=== PATIENT | male | born 1955 | race Caucasian/White ===

== ENCOUNTER 2021-06-24 00:12 | Inpatient (IN) | payer MEDICARE ==
[2021-06-24] MEDS ORDERED: Ketamine 50 MG/ML (10ML VIAL) ONE (00:14)
[2021-06-24] MEDS ORDERED: Xylocaine 1% w/ Epi 1:100K 10 ML VIAL ONE (00:15)
[2021-06-24] MEDS ORDERED: methylPREDNISolone Sod Succ/PF 125 MG/2 ML VIAL ONE (00:56)
[2021-06-24] MEDS ORDERED: Propofol 1,000 MG/100 ML VIAL IV ONE (01:10)
[2021-06-24] MEDS ORDERED: Ondansetron PF 4 MG/2 ML Vial IVP PRN (01:17)
[2021-06-24] MEDS ORDERED: Dextrose 5% in Water 1,000 ML IV PRN (01:17)
[2021-06-24] MEDS ORDERED: hydrALAZINE 20 MG/ML VIAL SLOW IVP PRN (01:17)
[2021-06-24] MEDS ORDERED: Dextrose 50% Abboject 50 ML SYRINGE SLOW IVP PRN (01:17)
[2021-06-24] MEDS ORDERED: Insulin Regular 300 UNITS/3 ML VIAL SC PRN (01:17)
[2021-06-24 01:18] LABS: Hemoglobin 15.1 g/dL (14.0-18.0); Mean Corpuscular HGB CONC 32.5 g/dL (32.0-36.0); Mean Corpuscular Hemoglobin 30.8 pg (27.0-31.0); Mean Corpuscular Volume 94.8 fL (78.0-98.0); Mean Platelet Volume 7.8 fL (7.4-10.4); Platelet Count 299 thou/uL (130-400); RBC Distribution Width 15.9 % (11.5-14.5); Red Blood Cell (RBC) Count 4.89 mill/uL (4.70-6.10); White Blood Cell (WBC) Count 20.9 thou/uL (4.8-10.8)
[2021-06-24 01:20] LABS: ALT (SGPT) 19 U/L (8-55); AST (SGOT) 17 U/L (5-34); Albumin 4.4 g/dL (3.4-4.8); Alkaline Phosphatase 80 U/L (40-110); Anion Gap 20 mmol/L (10-20); BUN (Urea Nitrogen) 16 mg/dL (8.4-25.7); Bilirubin, Total 0.9 mg/dL (0.2-1.2); Calc. Creatinine Clearance 0 mL/min (70-130); Calcium 9.4 mg/dL (7.8-10.44); Carbon Dioxide 21 mmol/L (23-31); Chloride 102 mmol/L (98-107); Globulin 3.1 g/dL (2.4-3.5); Glucose 149 mg/dL (80-115); Potassium 5.5 mmol/L (3.5-5.1); Protein, Total 7.5 g/dL (5.8-8.1); Sodium 137 mmol/L (136-145)
[2021-06-24 01:24] LABS: Band 10 % (5-11); Lymphocytes 8 % (21-51); MDiff Complete? YES; Monocytes 4 % (0-10); Neutrophil 78 % (42-75)
[2021-06-24 01:30] LABS: INR-International Normal Ratio 0.9; PTT 28.8 sec (22.9-36.1); Prothrombin Time 12.6 sec (12.0-14.7)
[2021-06-24 02:01] LABS: Actual Bicarbonate (HCO3a) 25.3 mEq/L (22-28); Analyzer IN Cardio ER; Base Excess (BEa) -3.5 mEq/L (-2.0 to +3.0); Calcium, Ionized (arterial) 1.19 mmol/L (1.12-1.30); Carboxyhemoglobin (COHb) 3.4 gm% (0.0-3.0); Hemoglobin (Hb) 15.3 g/dL (14.0-18.0); O2 Tension (PaO2), arterial 67.4 mmHg (> 80.0); Potassium - ABG Lab 4.98 mmol/L (3.70-5.30)
[2021-06-24 02:12] LABS: CO2 Tension 61.4 mmHg (35.0-45.0); Puncture Site RRA; pH, Arterial 7.23 (7.35-7.45)
[2021-06-24 04:50] LABS: SARS-CoV-2 NAA Rapid Test Not Detected (NotDetected)
[2021-06-24 05:44] VITALS: BMI 24.7
[2021-06-24] MEDS ORDERED: Morphine 4 MG/ML VIAL SLOW IVP PRN (05:56)
[2021-06-24] MEDS ORDERED: Ventilator Sedation Protocol 1 EACH FS SCH (06:00)
[2021-06-24] MEDS ORDERED: Propofol 1,000 MG/100 ML VIAL IV PRN (06:00)
[2021-06-24] MEDS ORDERED: DISCONTINUE PREVIOUS NARCOTIC PAIN MEDICATIONS AND BENZODIAZEPINES FS SCH (06:00)
[2021-06-24] MEDS ORDERED: Fentanyl BOLUS 250 ML IVPB PRN (06:00)
[2021-06-24] MEDS ORDERED: Lorazepam 2 MG/ML VIAL SLOW IVP PRN (06:00)
[2021-06-24] MEDS ORDERED: Propofol BOLUS 1,000 MG/100 ML VIAL IV PRN (06:00)
[2021-06-24] MEDS: Sodium Chloride 0.9% 1,000 ML IV SCH ×4 (07:12→20:54)
[2021-06-24] MEDS: Acetaminophen 500 MG TAB PO SCH ×4 (07:50→18:07)
[2021-06-24] MEDS: Oxazepam 10 MG CAP PO SCH ×3 (07:57→21:01)
[2021-06-24] MEDS: methylPREDNISolone Sod Succ 40 MG VIAL IVP SCH ×3 (07:57→17:04)
[2021-06-24] MEDS: Multivitamin W/ Minerals 1 TAB PO SCH (08:20)
[2021-06-24] MEDS: Polyethylene Glycol 3350 17 GM Packet PO SCH (08:20)
[2021-06-24] MEDS: Gabapentin 300 MG CAP PO SCH ×3 (08:20→20:51)
[2021-06-24] MEDS: Senokot S 8.6-50 MG TAB PO SCH ×2 (08:20→20:51)
[2021-06-24] MEDS: Thiamine 100 MG TAB PO SCH (08:20)
[2021-06-24] MEDS: Famotidine/PF 20 mg/2ml Vial SLOW IVP SCH ×2 (08:20→20:51)
[2021-06-24] MEDS: Folic Acid 1 MG TAB PO SCH (08:20)
[2021-06-24] MEDS ORDERED: Sodium Chloride 0.9% 1,000 ML IV SCH (08:45)
[2021-06-24] MEDS: fentaNYL Citrate-0.9 % NaCl/PF 100 ML IV SCH (10:47)
[2021-06-24] MEDS: Apixaban 5 MG TAB PO SCH (20:51)
[2021-06-25] MEDS: Acetaminophen 500 MG TAB PO SCH ×4 (01:10→20:05)
[2021-06-25] MEDS: methylPREDNISolone Sod Succ 40 MG VIAL IVP SCH ×4 (01:10→18:21)
[2021-06-25 04:15] LABS: #Lymphocytes 0.5 thou/uL (1.20-3.40); #Monocytes 1.1 thou/uL (0.11-0.59); #Neutrophils 11.6 thou/uL (1.40-6.50); %Eosinophils 0.1 % (0.0-10.0); %Lymphocytes 3.5 % (21.0-51.0); %Monocytes 8.2 % (0.0-10.0); %Neutrophils 88.3 % (42.0-75.0); Hemoglobin 11.6 g/dL (14.0-18.0); Mean Corpuscular HGB CONC 31.9 g/dL (32.0-36.0); Mean Corpuscular Hemoglobin 30.7 pg (27.0-31.0); Mean Corpuscular Volume 96.5 fL (78.0-98.0); Mean Platelet Volume 7.7 fL (7.4-10.4); Platelet Count 198 thou/uL (130-400); RBC Distribution Width 15.6 % (11.5-14.5); Red Blood Cell (RBC) Count 3.78 mill/uL (4.70-6.10); White Blood Cell (WBC) Count 13.1 thou/uL (4.8-10.8)
[2021-06-25] MEDS: fentaNYL Citrate-0.9 % NaCl/PF 100 ML IV SCH (04:24)
[2021-06-25 04:50] LABS: Anion Gap 13 mmol/L (10-20); BUN (Urea Nitrogen) 12 mg/dL (8.4-25.7); Calc. Creatinine Clearance 110 mL/min (70-130); Calcium 8.6 mg/dL (7.8-10.44); Carbon Dioxide 24 mmol/L (23-31); Chloride 105 mmol/L (98-107); Glucose 145 mg/dL (80-115); Magnesium 1.9 mg/dL (1.6-2.6); Potassium 4.5 mmol/L (3.5-5.1); Sodium 137 mmol/L (136-145)
[2021-06-25] MEDS: Oxazepam 10 MG CAP PO SCH ×3 (06:15→22:33)
[2021-06-25 07:17] LABS: Actual Bicarbonate (HCO3a) 23.2 mEq/L (22-28); Base Excess (BEa) -2.6 mEq/L (-2.0 to +3.0); CO2 Tension 44.1 mmHg (35.0-45.0); Calcium, Ionized (arterial) 1.18 mmol/L (1.12-1.30); Carboxyhemoglobin (COHb) 1.3 gm% (0.0-3.0); Hemoglobin (Hb) 13.6 g/dL (14.0-18.0); O2 Tension (PaO2), arterial 81.7 mmHg (> 80.0); Potassium - ABG Lab 4.44 mmol/L (3.70-5.30); pH, Arterial 7.34 (7.35-7.45)
[2021-06-25 07:43] LABS: Puncture Site RRA
[2021-06-25 07:45] LABS: ALV-art Gradient 148.375 mmHg (0-20)
[2021-06-25] MEDS ORDERED: Rib Fracture Protocol PO SCH (09:00)
[2021-06-25] MEDS: Multivitamin W/ Minerals 1 TAB PO SCH (09:04)
[2021-06-25] MEDS: Famotidine/PF 20 mg/2ml Vial SLOW IVP SCH (09:04)
[2021-06-25] MEDS: Sodium Chloride 0.9% 1,000 ML IV SCH (09:04)
[2021-06-25] MEDS: Folic Acid 1 MG TAB PO SCH (09:05)
[2021-06-25] MEDS: Thiamine 100 MG TAB PO SCH (09:05)
[2021-06-25] MEDS: Apixaban 5 MG TAB PO SCH ×2 (09:06→20:05)
[2021-06-25] MEDS: Gabapentin 300 MG CAP PO SCH ×3 (09:07→20:05)
[2021-06-25] MEDS: Polyethylene Glycol 3350 17 GM Packet PO SCH (09:08)
[2021-06-25] MEDS: Senokot S 8.6-50 MG TAB PO SCH ×2 (09:08→20:05)
[2021-06-25] MEDS ORDERED: Ketorolac Tromethamine 30 MG/ML VIAL IVP SCH (10:00)
[2021-06-25] MEDS ORDERED: Cyclobenzaprine 10 MG TAB PO PRN (10:45)
[2021-06-25] MEDS: traMADol HCl 50 MG TAB PO SCH ×2 (11:29→18:21)
[2021-06-25] MEDS ORDERED: Acetaminophen 500 MG TAB PO SCH (12:00)
[2021-06-25] MEDS: cloNIDine 0.1 MG TAB PO SCH ×2 (16:22→23:23)
[2021-06-25] MEDS: Ibuprofen 200 MG TAB PO SCH (18:22)
[2021-06-25] MEDS: Famotidine 20 MG TAB PO SCH (20:06)
[2021-06-25] MEDS: Tamsulosin HCl 0.4 MG CAP PO SCH (20:07)
[2021-06-26] MEDS: traMADol HCl 50 MG TAB PO SCH ×5 (00:15→23:20)
[2021-06-26] MEDS: methylPREDNISolone Sod Succ 40 MG VIAL IVP SCH ×5 (00:16→23:21)
[2021-06-26] MEDS: Acetaminophen 500 MG TAB PO SCH ×4 (01:10→21:51)
[2021-06-26] MEDS: Ibuprofen 200 MG TAB PO SCH ×3 (02:50→18:21)
[2021-06-26 03:40] LABS: #Lymphocytes 0.4 thou/uL (1.20-3.40); #Monocytes 0.8 thou/uL (0.11-0.59); #Neutrophils 10.1 thou/uL (1.40-6.50); %Eosinophils 0.1 % (0.0-10.0); %Lymphocytes 3.1 % (21.0-51.0); %Monocytes 6.9 % (0.0-10.0); %Neutrophils 89.8 % (42.0-75.0); Hemoglobin 11.5 g/dL (14.0-18.0); Mean Corpuscular HGB CONC 31.6 g/dL (32.0-36.0); Mean Corpuscular Hemoglobin 30.6 pg (27.0-31.0); Mean Corpuscular Volume 96.7 fL (78.0-98.0); Mean Platelet Volume 7.8 fL (7.4-10.4); Platelet Count 195 thou/uL (130-400); RBC Distribution Width 15.6 % (11.5-14.5); Red Blood Cell (RBC) Count 3.77 mill/uL (4.70-6.10); White Blood Cell (WBC) Count 11.3 thou/uL (4.8-10.8)
[2021-06-26 04:00] LABS: Anion Gap 12 mmol/L (10-20); BUN (Urea Nitrogen) 16 mg/dL (8.4-25.7); Calc. Creatinine Clearance 108 mL/min (70-130); Calcium 8.7 mg/dL (7.8-10.44); Carbon Dioxide 25 mmol/L (23-31); Chloride 105 mmol/L (98-107); Glucose 169 mg/dL (80-115); Potassium 4.7 mmol/L (3.5-5.1); Sodium 137 mmol/L (136-145)
[2021-06-26 04:05] LABS: Phosphorus 1.9 mg/dL (2.3-4.7)
[2021-06-26] MEDS: cloNIDine 0.1 MG TAB PO SCH ×4 (04:38→21:52)
[2021-06-26] MEDS: Oxazepam 10 MG CAP PO SCH ×3 (05:19→21:52)
[2021-06-26] MEDS ORDERED: Sodium Phosphate 30 MMOL in Sodium Chloride 0.9% 250 ML 250 ML IVPB SCH (06:30)
[2021-06-26] MEDS: Famotidine 20 MG TAB PO SCH ×2 (08:44→21:52)
[2021-06-26] MEDS: Thiamine 100 MG TAB PO SCH (08:44)
[2021-06-26] MEDS: Folic Acid 1 MG TAB PO SCH (08:44)
[2021-06-26] MEDS: Gabapentin 300 MG CAP PO SCH ×3 (08:44→21:53)
[2021-06-26] MEDS: Multivitamin W/ Minerals 1 TAB PO SCH (08:44)
[2021-06-26] MEDS: Apixaban 5 MG TAB PO SCH ×2 (08:44→21:53)
[2021-06-26] MEDS: Senokot S 8.6-50 MG TAB PO SCH ×2 (08:45→21:52)
[2021-06-26] MEDS: Polyethylene Glycol 3350 17 GM Packet PO SCH (08:51)
[2021-06-26] MEDS ORDERED: traMADol HCl 50 MG TAB ONE (11:55)
[2021-06-26] MEDS ORDERED: cloNIDine 0.1 MG TAB ONE (11:56)
[2021-06-26] MEDS ORDERED: Hydrocortisone Sod Succ/PF 100 mg/2 ml Vial ONE (12:16)
[2021-06-26] MEDS ORDERED: Acetaminophen 500 MG TAB ONE (13:34)
[2021-06-26] MEDS: Tamsulosin HCl 0.4 MG CAP PO SCH (21:51)
[2021-06-27] MEDS: Ibuprofen 200 MG TAB PO SCH ×3 (01:52→18:05)
[2021-06-27] MEDS: Acetaminophen 500 MG TAB PO SCH ×4 (01:52→21:21)
[2021-06-27] MEDS: cloNIDine 0.1 MG TAB PO SCH ×3 (05:04→18:41)
[2021-06-27] MEDS: Oxazepam 10 MG CAP PO SCH ×3 (05:04→23:01)
[2021-06-27] MEDS: traMADol HCl 50 MG TAB PO SCH ×4 (05:04→23:01)
[2021-06-27] MEDS: methylPREDNISolone Sod Succ 40 MG VIAL IVP SCH ×3 (05:05→18:04)
[2021-06-27] MEDS: Apixaban 5 MG TAB PO SCH ×2 (07:43→21:21)
[2021-06-27] MEDS: Multivitamin W/ Minerals 1 TAB PO SCH (07:43)
[2021-06-27] MEDS: Gabapentin 300 MG CAP PO SCH ×3 (07:43→21:22)
[2021-06-27] MEDS: Thiamine 100 MG TAB PO SCH (07:43)
[2021-06-27] MEDS: Famotidine 20 MG TAB PO SCH ×2 (07:43→21:21)
[2021-06-27] MEDS: Senokot S 8.6-50 MG TAB PO SCH ×2 (07:46→21:22)
[2021-06-27] MEDS: Polyethylene Glycol 3350 17 GM Packet PO SCH (07:47)
[2021-06-27] MEDS: Folic Acid 1 MG TAB PO SCH (11:19)
[2021-06-27] MEDS: Mometasone 200 MCG/Formoterol 5 MCG 120 PUFF INHALER INH SCH (18:55)
[2021-06-27] MEDS ORDERED: Non-Formulary Item 1 EACH (Albuterol Sulfate [Albuterol Sulfate Hfa] 8.5 GM Hfa.Aer.Ad) IH SCH (19:00)
[2021-06-27] MEDS: Tamsulosin HCl 0.4 MG CAP PO SCH (21:21)
[2021-06-28] MEDS: Ibuprofen 200 MG TAB PO SCH ×2 (02:21→10:56)
[2021-06-28] MEDS: Acetaminophen 500 MG TAB PO SCH ×3 (02:21→14:32)
[2021-06-28] MEDS: traMADol HCl 50 MG TAB PO SCH ×2 (05:40→12:14)
[2021-06-28] MEDS: Oxazepam 10 MG CAP PO SCH ×2 (05:40→14:31)
[2021-06-28] MEDS ORDERED: Furosemide 20 MG/2 ML VIAL SLOW IVP SCH (07:15)
[2021-06-28] MEDS: Mometasone 200 MCG/Formoterol 5 MCG 120 PUFF INHALER INH SCH (07:53)
[2021-06-28] MEDS ORDERED: predniSONE 20 MG TAB PO SCH (08:00)
[2021-06-28] MEDS: Multivitamin W/ Minerals 1 TAB PO SCH (08:44)
[2021-06-28] MEDS: Apixaban 5 MG TAB PO SCH (08:44)
[2021-06-28] MEDS: Gabapentin 300 MG CAP PO SCH ×2 (08:45→14:32)
[2021-06-28] MEDS: Thiamine 100 MG TAB PO SCH (08:45)
[2021-06-28] MEDS: Folic Acid 1 MG TAB PO SCH (08:45)
[2021-06-28] MEDS: Polyethylene Glycol 3350 17 GM Packet PO SCH (08:46)
[2021-06-28] MEDS: Senokot S 8.6-50 MG TAB PO SCH (08:46)
[2021-06-28] MEDS ORDERED: Furosemide 20 MG TAB PO SCH (09:00)
[2021-06-28 12:45] VITALS: BP 130/76; TEMP 98
== END 2021-06-28 15:45 | disposition home or self-care (01) | DRG 208 ==
LOC: ERS 00:12 → CCU 01:17 → PACU-TCU 06-26 09:27 → SJJU 06-26 15:11
PROVIDERS: ADMIT Surgery; ATTEND Surgery
PROC: 5A1945Z Respiratory Ventilation, 24-96 Consecutive Hours (ICD-10-PCS; principal; 2021-06-24)
PROC: 0W9B30Z Drainage of Left Pleural Cavity with Drainage Device, Percutaneous Approach (ICD-10-PCS; 2021-06-24)
PROC: 0BH17EZ Insertion of Endotracheal Airway into Trachea, Via Natural or Artificial Opening (ICD-10-PCS; 2021-06-24)
PROC: 0D9670Z Drainage of Stomach with Drainage Device, Via Natural or Artificial Opening (ICD-10-PCS; 2021-06-24)
DX: S27.0XXA Traumatic pneumothorax, initial encounter (principal); J96.90 Respiratory failure, unspecified, unspecified whether with hypoxia or hypercapnia; S22.43XA Multiple fractures of ribs, bilateral, initial encounter for closed fracture; I82.411 Acute embolism and thrombosis of right femoral vein; Z20.822 Contact with and (suspected) exposure to COVID-19; T79.7XXA Traumatic subcutaneous emphysema, initial encounter; J43.9 Emphysema, unspecified; F41.9 Anxiety disorder, unspecified; F32.A Depression, unspecified; F10.10 Alcohol abuse, uncomplicated; W18.30XA Fall on same level, unspecified, initial encounter; F17.210 Nicotine dependence, cigarettes, uncomplicated; R33.9 Retention of urine, unspecified; Z78.1 Physical restraint status; Z98.890 Other specified postprocedural states; Z86.718 Personal history of other venous thrombosis and embolism; Z79.82 Long term (current) use of aspirin; Z79.899 Other long term (current) drug therapy; T45.516A Underdosing of anticoagulants, initial encounter; Z91.14 Patient's other noncompliance with medication regimen; I95.9 Hypotension, unspecified
CPT/HCPCS: 36415; 36416; 36600; 71045; 80048; 80053; 82805; 83735; 83880; 84100; 84484; 85025; 85610; 85730; 93970; 94002; 94003; 94640; 94760; G0390; J1720; J1885; J2060; J2704; J2920; J2930; J7050; J7512; J7620; S0028; U0002

== ENCOUNTER 2021-07-17 12:12 | Outpatient (CLI) | payer MEDICARE | END 2021-07-17 12:13 | disposition home or self-care (01) | LOC: BICRAD 12:12 | PROVIDERS: ATTEND Surgery | DX: J18.9 Pneumonia, unspecified organism (principal); R91.8 Other nonspecific abnormal finding of lung field; J44.9 Chronic obstructive pulmonary disease, unspecified | CPT/HCPCS: 36415; 71046; 80048 ==

== ENCOUNTER 2021-08-01 11:29 | Outpatient (CLI) | payer MEDICARE ==
[~2021-08-01 11:29] MED LIST: Iopamidol 370 76% 100 ML VIAL ONE
== END 2021-08-01 11:30 | disposition home or self-care (01) ==
LOC: CT 11:29
PROVIDERS: ATTEND Surgery
DX: J44.9 Chronic obstructive pulmonary disease, unspecified (principal); I08.1 Rheumatic disorders of both mitral and tricuspid valves
CPT/HCPCS: 75635; 93306; 93880; Q9967

== ENCOUNTER 2022-03-11 09:40 | Inpatient (IN) | payer MEDICARE ==
[2022-03-11] MEDS ORDERED: TETANUS, DIPHTHERIA TOX,ADULT (TDVAX) 0.5 ML VIAL IM ONE (13:13)
[2022-03-11] MEDS ORDERED: Ondansetron PF 4 MG/2 ML Vial IVP PRN (13:13)
[2022-03-11] MEDS ORDERED: hydrALAZINE 20 MG/ML VIAL SLOW IVP PRN ×2 (13:13→13:16)
[2022-03-11] MEDS ORDERED: Rib Fracture Protocol IV SCH (13:15)
[2022-03-11] MEDS ORDERED: Sodium Chloride 0.9% 1,000 ML IV SCH ×2 (13:15→17:55)
[2022-03-11] MEDS ORDERED: Cyclobenzaprine 10 MG TAB PO PRN (13:16)
[2022-03-11 15:52] LABS: #Eosinphils 0.2 thou/uL (0.0-0.7); #Lymphocytes 0.7 thou/uL (1.20-3.40); #Monocytes 0.8 thou/uL (0.11-0.59); #Neutrophils 6.8 thou/uL (1.40-6.50); %Basophils 0.4 % (0.0-1.0); %Eosinophils 1.8 % (0.0-10.0); %Lymphocytes 8.1 % (21.0-51.0); %Monocytes 9.8 % (0.0-10.0); Hemoglobin 13.1 g/dL (14.0-18.0); Mean Corpuscular Hemoglobin 32.8 pg (27.0-31.0); Mean Platelet Volume 8.2 fL (7.4-10.4); Platelet Count 146 thou/uL (130-400); RBC Distribution Width 14.5 % (11.5-14.5); White Blood Cell (WBC) Count 8.5 thou/uL (4.8-10.8)
[2022-03-11 16:02] LABS: INR-International Normal Ratio 0.9; Prothrombin Time 11.9 sec (12.0-14.7)
[2022-03-11 16:03] LABS: PTT 30.9 sec (22.9-36.1)
[2022-03-11 16:13] LABS: ALT (SGPT) 21 U/L (8-55); AST (SGOT) 25 U/L (5-34); Albumin 3.5 g/dL (3.4-4.8); Alkaline Phosphatase 118 U/L (40-110); Anion Gap 15 mmol/L (10-20); BUN (Urea Nitrogen) 9 mg/dL (8.4-25.7); Bilirubin, Total 0.5 mg/dL (0.2-1.2); Calc. Creatinine Clearance 0 mL/min (70-130); Calcium 9.4 mg/dL (7.8-10.44); Carbon Dioxide 34 mmol/L (23-31); Chloride 87 mmol/L (98-107); Estimated GFR 109; Globulin 3.2 g/dL (2.4-3.5); Glucose 101 mg/dL (80-115); Magnesium 1.8 mg/dL (1.6-2.6); Phosphorus 2.6 mg/dL (2.3-4.7); Potassium 4.5 mmol/L (3.5-5.1); Protein, Total 6.7 g/dL (5.8-8.1); Sodium 131 mmol/L (136-145)
[2022-03-11] MEDS: Morphine 2 MG/ML VIAL SLOW IVP PRN ×2 (16:15→19:59)
[2022-03-11] MEDS: Oxazepam 10 MG CAP PO SCH ×2 (18:32→22:04)
[2022-03-11] MEDS: traMADol HCl 50 MG TAB PO SCH (18:33)
[2022-03-11] MEDS: Acetaminophen 325 MG TAB PO SCH (18:34)
[2022-03-11] MEDS: Nicotine 14 MG PATCH TOP SCH (18:44)
[2022-03-11] MEDS: Mometasone 200 MCG/Formoterol 5 MCG 120 PUFF INHALER INH SCH (19:23)
[2022-03-11] MEDS: Famotidine 20 MG TAB PO SCH (20:02)
[2022-03-11] MEDS: Senokot S 8.6-50 MG TAB PO SCH (20:20)
[2022-03-11 20:24] VITALS: BMI 23.0
[2022-03-11] MEDS ORDERED: Senokot S 8.6-50 MG TAB PO SCH (21:00)
[2022-03-12] MEDS: traMADol HCl 50 MG TAB PO SCH ×5 (00:05→23:41)
[2022-03-12] MEDS: Acetaminophen 325 MG TAB PO SCH ×5 (00:09→23:40)
[2022-03-12 00:53] LABS: Bacteria/HPF 4+ HPF (None Seen); Bilirubin Negative (Negative); Blood, Urine Negative (Negative); Clarity Turbid (Clear); Glucose, Urine (Dipstick) Normal (Negative); Ketone, Urine Trace mg/dL (Negative); Leukocyte 250 Leu/uL (Negative); Nitrite Negative (Negative); Protein, Urine (Dipstick) Negative (Neg-Trace); RBC/HPF 0-3 HPF (0-3); Specific Gravity, Urine 1.011 (1.002-1.036); Squamous Epithelial 0-3 HPF (0-3); Urobilinogen Normal mg/dL (Less than 2)
[2022-03-12 00:55] LABS: Urine Culture Reflex Yes Yes
[2022-03-12 01:08] LABS: Amphetamine Not Detected (NotDetected); Barbiturates Screen Not Detected (NotDetected); Benzodiazepine Screen Detected (NotDetected); Cocaine Metabolite Screen Not Detected (NotDetected); Methadone Not Detected (NotDetected); Methamphetamine Not Detected (NotDetected); Opiate Screen Detected (NotDetected); Oxycodone Screen Not Detected (NotDetected); Phencyclidine (PCP) Not Detected (NotDetected); THC/Cannabinoid Screen Not Detected (NotDetected); Tricyclic Screen Not Detected (NotDetected)
[2022-03-12] MEDS: Oxazepam 10 MG CAP PO SCH ×3 (05:01→21:23)
[2022-03-12] MEDS: Morphine 2 MG/ML VIAL SLOW IVP PRN ×3 (05:05→11:49)
[2022-03-12 05:59] LABS: #Eosinphils 0.2 thou/uL (0.0-0.7); #Lymphocytes 0.7 thou/uL (1.20-3.40); %Basophils 0.2 % (0.0-1.0); %Eosinophils 2.4 % (0.0-10.0); %Lymphocytes 7.4 % (21.0-51.0); %Monocytes 11.6 % (0.0-10.0); %Neutrophils 78.5 % (42.0-75.0); Hemoglobin 12.3 g/dL (14.0-18.0); Mean Corpuscular HGB CONC 31.3 g/dL (32.0-36.0); Mean Corpuscular Hemoglobin 33.1 pg (27.0-31.0); Mean Platelet Volume 8.4 fL (7.4-10.4); Platelet Count 126 thou/uL (130-400); RBC Distribution Width 14.4 % (11.5-14.5); Red Blood Cell (RBC) Count 3.72 mill/uL (4.70-6.10); White Blood Cell (WBC) Count 8.9 thou/uL (4.8-10.8)
[2022-03-12 06:22] LABS: SARS-CoV-2 NAA Rapid Test Not Detected (NotDetected)
[2022-03-12 06:28] LABS: ALT (SGPT) 21 U/L (8-55); AST (SGOT) 29 U/L (5-34); Albumin 3.3 g/dL (3.4-4.8); Alkaline Phosphatase 109 U/L (40-110); Anion Gap 13 mmol/L (10-20); BUN (Urea Nitrogen) 7 mg/dL (8.4-25.7); Bilirubin, Total 0.4 mg/dL (0.2-1.2); Calc. Creatinine Clearance 155 mL/min (70-130); Calcium 9.2 mg/dL (7.8-10.44); Carbon Dioxide 34 mmol/L (23-31); Chloride 88 mmol/L (98-107); Estimated GFR 113; Glucose 119 mg/dL (80-115); Magnesium 1.7 mg/dL (1.6-2.6); Phosphorus 2.8 mg/dL (2.3-4.7); Potassium 4.3 mmol/L (3.5-5.1); Protein, Total 6.3 g/dL (5.8-8.1); Sodium 131 mmol/L (136-145)
[2022-03-12] MEDS ORDERED: CEFAZOLIN 2 GM in Sodium Chloride 0.9% 100 ML IVPB SCH (07:15)
[2022-03-12] MEDS: Mometasone 200 MCG/Formoterol 5 MCG 120 PUFF INHALER INH SCH ×2 (07:40→18:28)
[2022-03-12] MEDS ORDERED: PHOS-NAK 1 PKT PACK PO SCH (08:15)
[2022-03-12] MEDS: Folic Acid 1 MG TAB PO SCH (08:43)
[2022-03-12] MEDS: Senokot S 8.6-50 MG TAB PO SCH ×2 (08:43→19:37)
[2022-03-12] MEDS: Famotidine 20 MG TAB PO SCH ×2 (08:43→19:36)
[2022-03-12] MEDS: Multivitamin W/ Minerals 1 TAB PO SCH (08:43)
[2022-03-12] MEDS: Polyethylene Glycol 3350 17 GM Packet PO SCH (08:43)
[2022-03-12] MEDS: Thiamine 100 MG TAB PO SCH (08:44)
[2022-03-12] MEDS ORDERED: Multivitamin W/ Minerals 1 TAB PO SCH (09:00)
[2022-03-12] MEDS ORDERED: Magnesium 2 GM/50 ML(in water) 2 GM in Premix Bag 1 BAG IVPB SCH (09:00)
[2022-03-12] MEDS ORDERED: Thiamine 100 MG TAB PO SCH (09:00)
[2022-03-12] MEDS ORDERED: Vancomycin 1 GM/200 ML BAG ONE (14:55)
[2022-03-12] MEDS ORDERED: Albuterol Sulfate HFA (OR ONLY) ONE ×2 (15:12→15:34)
[2022-03-12] MEDS ORDERED: fentaNYL Citrate/PF 100 MCG/2 ML SYRINGE ONE (15:12)
[2022-03-12] MEDS ORDERED: SUGAMMADEX SODIUM 200 MG/2 ML VIAL ONE (15:14)
[2022-03-12] MEDS ORDERED: CEFAZOLIN 2 GM VIAL ONE (15:23)
[2022-03-12] MEDS ORDERED: Sodium Chloride 0.9% 100 ML ONE (15:23)
[2022-03-12] MEDS ORDERED: Ketamine 50 MG/ML (10ML VIAL) ONE (15:25)
[2022-03-12] MEDS ORDERED: Ciprofloxacin 500 MG TAB PO SCH (15:30)
[2022-03-12] MEDS ORDERED: Phenylephrine 10 MG/ML VIAL ONE (15:34)
[2022-03-12] MEDS ORDERED: Dexamethasone 20 MG/5 ML VIAL ONE (15:34)
[2022-03-12] MEDS ORDERED: Lidocaine 1% MPF 2 ML VIAL ONE (15:34)
[2022-03-12] MEDS ORDERED: Ondansetron PF 4 MG/2 ML Vial ONE (15:34)
[2022-03-12] MEDS ORDERED: Rocuronium Bromide 10 MG/ML (10ML VIAL) ONE (15:34)
[2022-03-12] MEDS ORDERED: PROPOFOL 200 MG/20 ML VIAL ONE (15:34)
[2022-03-12] MEDS ORDERED: Fentanyl 100 MCG/2 ML VIAL ONE (18:07)
[2022-03-12] MEDS: Nicotine 14 MG PATCH TOP SCH (19:35)
[2022-03-12] MEDS: Ciprofloxacin 500 MG TAB PO SCH (19:37)
[2022-03-12] MEDS: CEFAZOLIN 2 GM in Sodium Chloride 0.9% 100 ML IVPB SCH (21:23)
[2022-03-13] MEDS: Morphine 2 MG/ML VIAL SLOW IVP PRN (03:00)
[2022-03-13] MEDS: Ibuprofen 200 MG TAB PO PRN ×2 (03:01→20:47)
[2022-03-13] MEDS: Oxazepam 10 MG CAP PO SCH ×3 (06:04→20:45)
[2022-03-13] MEDS: Acetaminophen 325 MG TAB PO SCH ×4 (06:04→23:21)
[2022-03-13] MEDS: CEFAZOLIN 2 GM in Sodium Chloride 0.9% 100 ML IVPB SCH ×2 (06:05→15:25)
[2022-03-13] MEDS: traMADol HCl 50 MG TAB PO SCH ×4 (06:06→23:21)
[2022-03-13] MEDS: Ciprofloxacin 500 MG TAB PO SCH (06:07)
[2022-03-13 06:20] LABS: #Eosinphils 0.1 thou/uL (0.0-0.7); #Lymphocytes 0.8 thou/uL (1.20-3.40); #Monocytes 0.9 thou/uL (0.11-0.59); #Neutrophils 7.7 thou/uL (1.40-6.50); %Basophils 0.2 % (0.0-1.0); %Lymphocytes 8.1 % (21.0-51.0); %Monocytes 9.4 % (0.0-10.0); %Neutrophils 81.3 % (42.0-75.0); Mean Corpuscular HGB CONC 32.6 g/dL (32.0-36.0); Mean Corpuscular Hemoglobin 35.3 pg (27.0-31.0); Mean Platelet Volume 8.6 fL (7.4-10.4); Platelet Count 109 thou/uL (130-400); RBC Distribution Width 14.3 % (11.5-14.5); Red Blood Cell (RBC) Count 2.83 mill/uL (4.70-6.10); White Blood Cell (WBC) Count 9.4 thou/uL (4.8-10.8)
[2022-03-13 06:49] LABS: Anion Gap 13 mmol/L (10-20); BUN (Urea Nitrogen) 8 mg/dL (8.4-25.7); Calc. Creatinine Clearance 161 mL/min (70-130); Calcium 8.1 mg/dL (7.8-10.44); Carbon Dioxide 28 mmol/L (23-31); Chloride 94 mmol/L (98-107); Estimated GFR 115; Glucose 131 mg/dL (80-115); Magnesium 1.9 mg/dL (1.6-2.6); Phosphorus 2.8 mg/dL (2.3-4.7); Potassium 4.3 mmol/L (3.5-5.1); Sodium 131 mmol/L (136-145)
[2022-03-13] MEDS: Mometasone 200 MCG/Formoterol 5 MCG 120 PUFF INHALER INH SCH ×2 (07:06→18:45)
[2022-03-13] MEDS: Folic Acid 1 MG TAB PO SCH (08:58)
[2022-03-13] MEDS: Polyethylene Glycol 3350 17 GM Packet PO SCH (08:58)
[2022-03-13] MEDS: Aspirin 81 mg Enteric Coated Tablet PO SCH ×2 (08:58→20:45)
[2022-03-13] MEDS: Senokot S 8.6-50 MG TAB PO SCH ×2 (08:59→20:46)
[2022-03-13] MEDS: Multivitamin W/ Minerals 1 TAB PO SCH (08:59)
[2022-03-13] MEDS: Famotidine 20 MG TAB PO SCH ×2 (08:59→20:45)
[2022-03-13] MEDS: Thiamine 100 MG TAB PO SCH (08:59)
[2022-03-13] MEDS: PHOS-NAK 1 PKT PACK PO SCH ×2 (09:07→09:11)
[2022-03-13] MEDS ORDERED: Piperacillin/Tazobactam 3.375 GM in Sodium Chloride 0.9% 100 ML IVPB SCH ×2 (15:00→16:00)
[2022-03-13] MEDS: Gabapentin 100 MG CAP PO SCH ×2 (15:25→20:48)
[2022-03-13] MEDS: Nicotine 14 MG PATCH TOP SCH (16:42)
[2022-03-13] MEDS: Piperacillin/Tazobactam 3.375 GM in Sodium Chloride 0.9% 100 ML IVPB SCH (20:52)
[2022-03-14] MEDS: Piperacillin/Tazobactam 3.375 GM in Sodium Chloride 0.9% 100 ML IVPB SCH ×3 (03:48→20:42)
[2022-03-14] MEDS: traMADol HCl 50 MG TAB PO PRN (04:07)
[2022-03-14] MEDS: Acetaminophen 325 MG TAB PO SCH ×4 (05:19→23:06)
[2022-03-14] MEDS: Oxazepam 10 MG CAP PO SCH ×3 (05:20→20:51)
[2022-03-14] MEDS: traMADol HCl 50 MG TAB PO SCH ×4 (05:20→23:08)
[2022-03-14 06:05] LABS: #Eosinphils 0.5 thou/uL (0.0-0.7); #Lymphocytes 1.1 thou/uL (1.20-3.40); #Monocytes 1.1 thou/uL (0.11-0.59); #Neutrophils 7.8 thou/uL (1.40-6.50); %Basophils 0.2 % (0.0-1.0); %Eosinophils 4.8 % (0.0-10.0); %Lymphocytes 10.1 % (21.0-51.0); %Monocytes 10.8 % (0.0-10.0); %Neutrophils 74.1 % (42.0-75.0); Hemoglobin 7.4 g/dL (14.0-18.0); Mean Corpuscular HGB CONC 30.9 g/dL (32.0-36.0); Mean Corpuscular Hemoglobin 32.9 pg (27.0-31.0); Mean Platelet Volume 8.6 fL (7.4-10.4); Platelet Count 155 thou/uL (130-400); RBC Distribution Width 14.2 % (11.5-14.5); Red Blood Cell (RBC) Count 2.25 mill/uL (4.70-6.10); White Blood Cell (WBC) Count 10.6 thou/uL (4.8-10.8)
[2022-03-14 06:32] LABS: Anion Gap 10 mmol/L (10-20); BUN (Urea Nitrogen) 8 mg/dL (8.4-25.7); Calc. Creatinine Clearance 155 mL/min (70-130); Calcium 8.2 mg/dL (7.8-10.44); Carbon Dioxide 32 mmol/L (23-31); Chloride 95 mmol/L (98-107); Estimated GFR 113; Glucose 116 mg/dL (80-115); Magnesium 1.9 mg/dL (1.6-2.6); Phosphorus 3.5 mg/dL (2.3-4.7); Potassium 3.9 mmol/L (3.5-5.1); Sodium 133 mmol/L (136-145)
[2022-03-14] MEDS: Mometasone 200 MCG/Formoterol 5 MCG 120 PUFF INHALER INH SCH ×2 (07:02→18:22)
[2022-03-14] MEDS ORDERED: FLU VACC QS2022-23(6MOS UP)/PF 60 MCG/0.5 ML SYRINGE IM ONE (09:00)
[2022-03-14] MEDS: Ibuprofen 200 MG TAB PO PRN ×2 (09:22→20:48)
[2022-03-14] MEDS: Folic Acid 1 MG TAB PO SCH (09:22)
[2022-03-14] MEDS: Aspirin 81 mg Enteric Coated Tablet PO SCH ×2 (09:22→20:50)
[2022-03-14] MEDS: Senokot S 8.6-50 MG TAB PO SCH ×2 (09:22→20:51)
[2022-03-14] MEDS: Multivitamin W/ Minerals 1 TAB PO SCH (09:22)
[2022-03-14] MEDS: Famotidine 20 MG TAB PO SCH ×2 (09:22→20:50)
[2022-03-14] MEDS: Polyethylene Glycol 3350 17 GM Packet PO SCH (09:22)
[2022-03-14] MEDS: Thiamine 100 MG TAB PO SCH (09:24)
[2022-03-14] MEDS: Gabapentin 100 MG CAP PO SCH ×3 (09:24→20:46)
[2022-03-14] MEDS: Nicotine 14 MG PATCH TOP SCH (16:57)
[2022-03-15] MEDS: traMADol HCl 50 MG TAB PO PRN (03:29)
[2022-03-15] MEDS: Piperacillin/Tazobactam 3.375 GM in Sodium Chloride 0.9% 100 ML IVPB SCH ×3 (03:31→20:31)
[2022-03-15 05:30] LABS: Anion Gap 8 mmol/L (10-20); BUN (Urea Nitrogen) 7 mg/dL (8.4-25.7); Calc. Creatinine Clearance 136 mL/min (70-130); Calcium 8.3 mg/dL (7.8-10.44); Carbon Dioxide 34 mmol/L (23-31); Chloride 96 mmol/L (98-107); Estimated GFR 109; Glucose 137 mg/dL (80-115); Magnesium 2.1 mg/dL (1.6-2.6); Phosphorus 3.8 mg/dL (2.3-4.7); Potassium 4.2 mmol/L (3.5-5.1); Sodium 134 mmol/L (136-145)
[2022-03-15] MEDS: Oxazepam 10 MG CAP PO SCH ×3 (05:35→20:28)
[2022-03-15] MEDS: Acetaminophen 325 MG TAB PO SCH ×3 (05:35→17:10)
[2022-03-15] MEDS: traMADol HCl 50 MG TAB PO SCH ×4 (05:36→17:10)
[2022-03-15 05:49] LABS: Band 15 % (5-11); Eosinophils 2 % (0-10); Hemoglobin 7.4 g/dL (14.0-18.0); Lymphocytes 12 % (21-51); MDiff Complete? YES; Macrocytosis SLIGHT = 6-15 cells (100X) (0-5/hpf); Mean Corpuscular HGB CONC 30.8 g/dL (32.0-36.0); Mean Corpuscular Hemoglobin 33.1 pg (27.0-31.0); Mean Platelet Volume 7.5 fL (7.4-10.4); Metamyelocyte 1 % (0-0); Monocytes 14 % (0-10); Myelocyte 6 % (0-0); Neutrophil 50 % (42-75); Platelet Count 203 thou/uL (130-400); RBC Distribution Width 14.1 % (11.5-14.5); Red Blood Cell (RBC) Count 2.22 mill/uL (4.70-6.10); White Blood Cell (WBC) Count 8.9 thou/uL (4.8-10.8)
[2022-03-15] MEDS: Mometasone 200 MCG/Formoterol 5 MCG 120 PUFF INHALER INH SCH ×2 (07:02→19:16)
[2022-03-15] MEDS: Famotidine 20 MG TAB PO SCH ×2 (08:50→20:30)
[2022-03-15] MEDS: Gabapentin 100 MG CAP PO SCH ×3 (08:50→20:29)
[2022-03-15] MEDS: Aspirin 81 mg Enteric Coated Tablet PO SCH ×2 (08:50→20:30)
[2022-03-15] MEDS: Folic Acid 1 MG TAB PO SCH (08:50)
[2022-03-15] MEDS: Multivitamin W/ Minerals 1 TAB PO SCH (08:50)
[2022-03-15] MEDS: Thiamine 100 MG TAB PO SCH (08:50)
[2022-03-15] MEDS: Polyethylene Glycol 3350 17 GM Packet PO SCH (08:51)
[2022-03-15] MEDS: Senokot S 8.6-50 MG TAB PO SCH ×2 (08:51→20:27)
[2022-03-15] MEDS: Ibuprofen 200 MG TAB PO PRN ×2 (08:56→16:31)
[2022-03-15] MEDS: Nicotine 14 MG PATCH TOP SCH (17:11)
[2022-03-16] MEDS: traMADol HCl 50 MG TAB PO PRN ×2 (00:24→14:46)
[2022-03-16] MEDS: Acetaminophen 325 MG TAB PO SCH ×4 (00:24→17:37)
[2022-03-16] MEDS: Piperacillin/Tazobactam 3.375 GM in Sodium Chloride 0.9% 100 ML IVPB SCH ×3 (04:51→20:08)
[2022-03-16] MEDS: Oxazepam 10 MG CAP PO SCH ×3 (04:52→22:28)
[2022-03-16] MEDS: traMADol HCl 50 MG TAB PO SCH ×3 (04:53→17:36)
[2022-03-16] MEDS: Mometasone 200 MCG/Formoterol 5 MCG 120 PUFF INHALER INH SCH ×2 (08:03→19:04)
[2022-03-16] MEDS: Folic Acid 1 MG TAB PO SCH (08:17)
[2022-03-16] MEDS: Senokot S 8.6-50 MG TAB PO SCH ×2 (08:19→20:08)
[2022-03-16] MEDS: Famotidine 20 MG TAB PO SCH ×2 (08:19→20:08)
[2022-03-16] MEDS: Multivitamin W/ Minerals 1 TAB PO SCH (08:19)
[2022-03-16] MEDS: Gabapentin 100 MG CAP PO SCH ×3 (08:19→20:08)
[2022-03-16] MEDS: Thiamine 100 MG TAB PO SCH (08:19)
[2022-03-16] MEDS: Aspirin 81 mg Enteric Coated Tablet PO SCH ×2 (08:19→20:07)
[2022-03-16] MEDS: Ibuprofen 200 MG TAB PO PRN ×2 (08:20→20:22)
[2022-03-16] MEDS: Polyethylene Glycol 3350 17 GM Packet PO SCH (08:21)
[2022-03-16] MEDS: Nicotine 14 MG PATCH TOP SCH (17:37)
[2022-03-17] MEDS: traMADol HCl 50 MG TAB PO SCH ×4 (00:44→18:22)
[2022-03-17] MEDS: Acetaminophen 325 MG TAB PO SCH ×4 (00:44→18:21)
[2022-03-17] MEDS: Piperacillin/Tazobactam 3.375 GM in Sodium Chloride 0.9% 100 ML IVPB SCH ×2 (05:00→11:40)
[2022-03-17] MEDS: Oxazepam 10 MG CAP PO SCH ×2 (05:06→14:31)
[2022-03-17] MEDS: Mometasone 200 MCG/Formoterol 5 MCG 120 PUFF INHALER INH SCH ×2 (08:03→18:15)
[2022-03-17] MEDS: Gabapentin 100 MG CAP PO SCH ×2 (09:16→14:31)
[2022-03-17] MEDS: Folic Acid 1 MG TAB PO SCH (09:16)
[2022-03-17] MEDS: Aspirin 81 mg Enteric Coated Tablet PO SCH (09:16)
[2022-03-17] MEDS: Thiamine 100 MG TAB PO SCH (09:16)
[2022-03-17] MEDS: Famotidine 20 MG TAB PO SCH (09:17)
[2022-03-17] MEDS: Multivitamin W/ Minerals 1 TAB PO SCH (09:17)
[2022-03-17] MEDS: Polyethylene Glycol 3350 17 GM Packet PO SCH (09:18)
[2022-03-17] MEDS: Senokot S 8.6-50 MG TAB PO SCH (09:19)
[2022-03-17] MEDS: Ibuprofen 200 MG TAB PO PRN (12:29)
[2022-03-17] MEDS: traMADol HCl 50 MG TAB PO PRN (14:31)
[2022-03-17] MEDS: Nicotine 14 MG PATCH TOP SCH (18:22)
[2022-03-17 21:44] VITALS: BP 112/68; TEMP 98.1
== END 2022-03-17 20:25 | disposition swing bed (61) | DRG 522 ==
LOC: SURG A 11:05 → SURG B 15:25
PROVIDERS: ADMIT Surgery; ATTEND Surgery
PROC: 0SRR0JZ Replacement of Right Hip Joint, Femoral Surface with Synthetic Substitute, Open Approach (ICD-10-PCS; principal; 2022-03-12)
DX: S72.001A Fracture of unspecified part of neck of right femur, initial encounter for closed fracture (principal); I50.32 Chronic diastolic (congestive) heart failure; N39.0 Urinary tract infection, site not specified; D62 Acute posthemorrhagic anemia; Z16.24 Resistance to multiple antibiotics; F17.210 Nicotine dependence, cigarettes, uncomplicated; J43.9 Emphysema, unspecified; Z20.822 Contact with and (suspected) exposure to COVID-19; F10.10 Alcohol abuse, uncomplicated; W10.9XXA Fall (on) (from) unspecified stairs and steps, initial encounter; Z86.718 Personal history of other venous thrombosis and embolism; Z98.890 Other specified postprocedural states; Z99.81 Dependence on supplemental oxygen; Z79.51 Long term (current) use of inhaled steroids; Z79.899 Other long term (current) drug therapy
CPT/HCPCS: 36415; 72170; 80048; 80053; 80306; 81001; 83735; 84100; 85025; 85610; 85730; 86850; 86900; 86901; 87077; 87086; 87186; 90714; 93970; 94640; 94664; 97139; C1713; C1776; J0690; J1100; J2270; J2370; J2405; J2543; J2704; J3010; J3370; J3475; J3490; J7050; J7620; U0002